=== PATIENT | female | born 1965 | race Hispanic/Latino ===

== ENCOUNTER → 2016-04-25 | Outpatient (CLI) | payer OTHER | END | disposition home or self-care (01) | LOC: YCFC.O 15:46 | PROVIDERS: ATTEND Nurse Practitioner Family | DX: E11.9 Type 2 diabetes mellitus without complications (principal); E78.2 Mixed hyperlipidemia ==

== ENCOUNTER → 2016-10-26 | Outpatient (CLI) | payer OTHER | END | disposition home or self-care (01) | LOC: YCFC.O 09:24 | PROVIDERS: ATTEND Nurse Practitioner Family | DX: E78.2 Mixed hyperlipidemia (principal); E11.9 Type 2 diabetes mellitus without complications; E03.9 Hypothyroidism, unspecified ==

== ENCOUNTER → 2017-02-07 | Outpatient (CLI) | payer OTHER | END | disposition home or self-care (01) | LOC: LAB.O 11:44 | PROVIDERS: ATTEND Nurse Practitioner Family | DX: E78.2 Mixed hyperlipidemia (principal) ==

== ENCOUNTER → 2017-08-17 | Outpatient (CLI) | payer OTHER | LOC: YCFC.O 08:27 | PROVIDERS: ATTEND Nurse Practitioner Family | DX: E78.2 Mixed hyperlipidemia (principal); D64.9 Anemia, unspecified; E03.9 Hypothyroidism, unspecified; E11.9 Type 2 diabetes mellitus without complications ==

== ENCOUNTER → 2018-04-10 | Outpatient (CLI) | payer OTHER | LOC: YCFC.O 10:41 | PROVIDERS: ATTEND Nurse Practitioner Family | DX: I10 Essential (primary) hypertension (principal); E78.2 Mixed hyperlipidemia; E03.9 Hypothyroidism, unspecified; E11.9 Type 2 diabetes mellitus without complications ==

== ENCOUNTER → 2018-06-05 | Outpatient (CLI) | payer OTHER ==
--- NOTE | 2018-06-06 15:02 | MAM ---
EXAM DESCRIPTION: 3D Screening BILATERAL : Digital Mammography. CLINICAL HISTORY: 52 years Female SCREENING . No complaints or personal history of breast cancer. Mother with breast cancer. Childbirth. Postmenopausal one year. No HRT. Lifetime risk of developing breast cancer (Tyrer-Cuzick model)(%): 8.2. COMPARISON: 2-D digital screening bilateral mammography 08/05/2015. TECHNIQUE: Bilateral CC and MLO projection full-field images, digital tomosynthesis mammographic technique. Bilateral digital 2-D full-field MLO images. and CC images. CAD not available for tomosynthesis or 2-D images. FINDINGS: The breast parenchymal density pattern is: Heterogeneously dense breast tissue, which may obscure small masses. No skin thickening or nipple retraction. Bilateral solitary microcalcifications. Small lymph node in the right axillary tail. No new focal, stellate mass or density, focal asymmetry , and no suspicious microcalcifications bilaterally. Stable mammograms compared to prior study. Taking into account, differences in mammographic technique. IMPRESSION: Benign exam. BIRAD CATEGORY: 2 BENIGN FINDINGS. RECOMMENDATIONS: FOLLOW UP: Routine digital bilateral mammographic screening, one year interval from June 2018. Written communication explaining the IMPRESSION and follow-up, will be mailed to the patient and referring health care provider. The FINDINGS and the FOLLOW-UP plan were reviewed in person with the patient after the examination. According to the [employer], yearly mammograms are recommended starting at age 40 and continuing as long as a woman is in good health. Any breast change noted on a breast self-exam should be reported promptly to the patient's healthcare provider. Breast MRI is recommended for women with an approximately 20-25% or greater lifetime risk of breast cancer, including women with a strong family history of breast or ovarian cancer and women who have been treated for Hodgkin's disease. A negative mammographic report should not delay tissue diagnosis in patients with significant clinical history or physical findings. Extremely dense breast tissue limits the sensitivity of digital mammography. Electronically signed by: Trev Plunkett MD 06/06/2018 2:59 PM CDT
== END ==
LOC: MAMMO 12:52
PROVIDERS: ATTEND Nurse Practitioner Family
DX: Z12.31 Encounter for screening mammogram for malignant neoplasm of breast (principal)

== ENCOUNTER → 2018-09-28 | Outpatient (CLI) | payer OTHER | LOC: LAB.O 10:48 | PROVIDERS: ATTEND Nurse Practitioner Family | DX: E78.2 Mixed hyperlipidemia (principal); I10 Essential (primary) hypertension; E03.9 Hypothyroidism, unspecified; E11.9 Type 2 diabetes mellitus without complications ==

== ENCOUNTER → 2019-08-12 | Outpatient (CLI) | payer OTHER | LOC: LAB.O 12:06 | PROVIDERS: ATTEND Internal Medicine | DX: E06.3 Autoimmune thyroiditis (principal) ==

== ENCOUNTER → 2019-12-05 | Outpatient (CLI) | payer OTHER | LOC: YCFC.O 11:40 | PROVIDERS: ATTEND Family Medicine | DX: E11.9 Type 2 diabetes mellitus without complications (principal); E78.00 Pure hypercholesterolemia, unspecified; I10 Essential (primary) hypertension; E03.9 Hypothyroidism, unspecified; D64.9 Anemia, unspecified ==

== ENCOUNTER → 2020-01-23 | Outpatient (CLI) | payer OTHER | LOC: LAB.O 15:34 | PROVIDERS: ATTEND Internal Medicine | DX: M06.9 Rheumatoid arthritis, unspecified (principal) ==

== ENCOUNTER → 2020-04-09 | Outpatient (CLI) | payer OTHER | LOC: LAB.O 10:36 | DX: M06.9 Rheumatoid arthritis, unspecified (principal) ==